=== PATIENT | female | born 1980 | race Caucasian/White ===

== ENCOUNTER 2024-11-08 08:46 | Emergency (ER) | payer BC, OTHER, SELFPAY ==
[2024-11-08 08:59] VITALS: BP 127/72
--- NOTE | 2024-11-08 09:43 | ED.GENMED ---
History of Present Illness
General
Chief Complaint: Abdominal Pain
Source: patient
Exam Limitations: none
Time Seen by Provider: 11/08/24 09:09
Nursing documentation reviewed up to this point in time: agreed with
History of Present Illness
History of Present Illness:
Patient with history of SVT on metoprolol, presents to ED secondary to persistent lower abdominal pain over the past 10 days. Abdominal pain described as crampy, intermittent, without any alleviating or exacerbating factors. Denies fever or
chills. Denies nausea, vomiting, or diarrhea. Denies sick contact. Denies recent travel. Denies recent change in diet. There is family history of colon cancer. Denies weight loss.Patient states that she may have had similar symptoms last
year. At that time, pelvic ultrasound was ordered by her primary care physician. However, by the time pelvic ultrasound was done, her abdominal pain had resolved completely. Pelvic ultrasound did not reveal any acute abnormalities.
Past History
Past History
ED Past Medical History: Arrthythmia (SVT)
ED Past Surgical History: None
Social History
Tobacco: Non-smoker
Alcohol: Occasional
Drug: None
Personal:
Living: with family
Employment: Employed
Family History
Family History: Other
Review of Systems
Review of Systems
Allergies reviewed?: Yes
All Other Systems: ROS reviewed and negative except as documented in HPI and ROS
Constitutional: Reports no symptoms; Denies fever or chills
ABD/GI: Reports abdominal pain; Denies nausea, vomiting or diarrhea
: Reports no symptoms
Musculoskeletal: Reports no symptoms
Neurological: Reports no symptoms
Phy Exam
Physical Exam
Physical Exam:
Physical Exam
General: no apparent distress, not acutely ill. afebrile
Head: nc/at. eomi
Neck: supple. no meningeal signs.
Heart: s1/s2 regular rate and rhythm, no murmur. equal radial pulses.
Lungs: no acute respiratory distress. clear bilaterally
Abdomen: normal bowel sounds. not tender.
Neuro: alert and oriented x 3. no focal neurological deficits
Skin: no rash
Psychiatric: well kept. interactive and cooperative
Extremities: no edema. no calf tenderness.
Course
Orders/Labs/Results
Orders:
Orders
11/08/24 09:40
Iohexol [Omnipaque] See Protocol PO NOW STA
11/08/24 09:41
CT Abd/pel W Iv And Oral Contr Urgent
Comment:
Reason For Exam: lower abdominal pain
Test Result ONCE
11/08/24 10:02
Complete Blood Count/With Diff Urgent
Comprehensive Metabolic Panel Urgent
HCG, Serum Qualitative Screen Urgent
Urinalysis Reflex To Culture Urgent
Date Specimen was Collected: 11/08/24
Time Specimen was Collected: 09:53
11/08/24 13:09
US Pelvis W Transvag Combined Urgent
Comment:
Reason For Exam: lower abdominal pain
Abnormal Lab Results
11/08/24
10:02
MCHC 32.4 L g/dL
(33.0-37.0)
MPV 10.7 H fL
(7.4-10.4)
Lymphocytes % 18.4 L %
(20.5-51.1)
11/08/24 10:02
11/08/24 10:02
Vital Signs
Initial and Last Documented VS:
Initial Vital Signs
Temp Pulse Resp BP Pulse Ox
98.7 F 80 16 127/72 100
11/08/24 08:59 11/08/24 08:59 11/08/24 08:59 11/08/24 08:59 11/08/24 08:59
Last Documented Vital Signs
Temp Pulse Resp BP Pulse Ox
98.7 F 65 16 131/75 99
11/08/24 08:59 11/08/24 16:32 11/08/24 16:32 11/08/24 16:32 11/08/24 16:32
MDM/Problems Addressed
MDM/Problems Addressed:
CT abd/pel: no acute findings. Due to intermittent nature of lower abdominal pain, will order pelvic US. If normal, patient will be discharged home for outpatient evaluation with her pmd/carton folder physician.
*Critical Care Note
Total Time (30-74mins, 75-104mins- exclusive of procedures): Not Applicable
ED Attending Note
-
Portions of this chart may have been created with voice recognition software.� Occasional wrong word or��sound alike� substitutions may have occurred due to the inherent limitations of voice recognition software.
Discharge Plan
Departure
Patient Disposition: Home (Routine Discharge)
Date of Disposition: 11/08/24
Time of Disposition: 15:45
Patient with high blood pressure during this ER visit?: Yes
Discharge Problem:
Abdominal pain
Instructions: Abdominal Pain
Prescriptions:
No Action
metoprolol succinate 25 mg Tablet Extended Release 24 Hr
25 mg PO BID
Referrals:
Emi Thornton, [Family Provider] -
Activity Restrictions/Additional Instructions:
As discussed, please follow up with your primary care physician and/or carton folder physician for further evaluation and treatment.
Interventions
Interventions:
*Risk Screen - Suicide Last Done: 11/08/24 09:02
*General Assessment Last Done: 11/08/24 09:02
*Neglect/Abuse Screening Last Done: 11/08/24 09:02
ED- Fall Risk Assessment Last Done: 11/08/24 16:32
*ED COVID-19 Vaccine History Last Done: 11/08/24 16:29
*Nursing Disposition Last Done: 11/08/24 16:32
YK-Knjqvy-Uwzplxkixp Assessment Last Done: 11/08/24 12:00
Discharge Date and Time
Discharge Date/Time: 11/08/24 16:35
Print Language: HAITIAN
[2024-11-08 09:53] VITALS: BMI 26.0
[2024-11-08] MEDS: OMNIPAQUE 50 ML PO (09:54)
[2024-11-08 10:07] VITALS: BP 139/63
[2024-11-08 10:21] LABS: % Basophils 0.9 % (0-2); % Eosinophils 1.4 % (0-6); % Immature Granulocytes 0.5 % (0-0.5); % Lymphocytes 18.4 % (20.5-51.1); % Monocytes 8.2 % (1.7-9.3); % Neutrophils 70.6 % (42.2-75.2); Absolute Basophils 0.1 10^3/uL (0-0.2); Absolute Eosinophils 0.1 10^3/uL (0-0.7); Absolute Lymphocytes 1.2 10^3/uL (1.2-3.4); Absolute Monocytes 0.5 10^3/uL (0.1-0.6); Absolute Neutrophils 4.7 10^3/uL (1.4-6.5); Hematocrit 41.3 % (37.0-47.0); Hemoglobin 13.4 g/dL (12.0-16.0); Mean Corp Hgb Conc. 32.4 g/dL (33.0-37.0); Mean Corpuscular Hgb 30.2 pg (27.0-31.0); Mean Corpuscular Volume 93.2 fL (81.0-99.0); Mean Platelet Volume 10.7 fL (7.4-10.4); Nucleated Red Blood Cells % 0 %; Platelet Count 292 10^3/uL (130-400); Red Blood Cell Count 4.43 10^6/uL (4.20-5.40); Red Cell Dist. Width 11.9 % (11.5-14.5); White Blood Cell Count 6.6 10^3/uL (4.8-10.8)
[2024-11-08 10:35] LABS: HCG, Serum Qualitative Screen Negative
[2024-11-08 10:37] LABS: ALT (SGPT) 20 U/L (0-35); AST (SGOT) 25 U/L (14-36); Albumin 4.9 g/dl (3.5-5.0); Alkaline Phosphatase 57 U/L (38-126); Blood Urea Nitrogen 11 mg/dl (7-17); Calcium 9.7 mg/dl (8.4-10.2); Carbon Dioxide 30 mmol/L (22-30); Chloride 105 mmol/L (98-107); Estimated Creatinine Clearance 83 ml/min; Glucose 87 mg/dl (70-99); Potassium 4.7 mmol/L (3.5-5.1); Sodium 143 mmol/L (135-145); Total Bilirubin 0.4 mg/dl (0.2-1.3); Total Protein 7.4 g/dl (6.3-8.2); eGFR > 60.00
[2024-11-08 10:47] LABS: Urine Albumin Negative (Neg - Trace); Urine Bilirubin Negative (Negative); Urine Character Clear (Clear); Urine Color Yellow; Urine Glucose Negative (Negative); Urine Ketone Negative (Negative); Urine Leukocyte Negative (Negative); Urine Nitrite Negative (Negative); Urine Occult Blood Negative (Negative); Urine Specific Gravity 1.005 (<1.030); Urine Urobilinogen Negative (Neg - 1+)
[2024-11-08 12:30] VITALS: BP 123/74
[2024-11-08 15:48] VITALS: BP 131/75
[2024-11-08 16:32] VITALS: BP 131/75
== END 2024-11-08 16:35 | disposition home or self-care (01) ==
LOC: EMR 08:46
PROVIDERS: EMERGENCY PHYSICIAN Emergency Medicine; FAMILY PHYSICIAN Family Medicine
DX: R10.30 Lower abdominal pain, unspecified (principal); Z86.79 Personal history of other diseases of the circulatory system; Z79.899 Other long term (current) drug therapy
CPT/HCPCS: 99284; 74177; 76830; 76856; 80053; 81003; 84703; 85025; Q9967

== ENCOUNTER → 2025-03-17 09:26 | Outpatient (REF) | payer BC, SELFPAY | LOC: HWRAD 09:26 | PROVIDERS: ATTENDING PHYSICIAN Family Medicine | DX: M54.2 Cervicalgia (principal) | CPT/HCPCS: 76536 ==